=== PATIENT | male | born 1975 | race African-American/Black ===

== ENCOUNTER 2019-10-21 23:54 | Inpatient (IN) | payer MEDICAID, OTHER ==
[~2019-10-21] VITALS: Ht 175.3 cm; Wt 65.8 kg
[2019-10-22] MEDS ORDERED: SODIUM CHLORIDE 0.9% 1,000 ML IV ONE ×3 (00:20→12:00)
[2019-10-22] MEDS ORDERED: OLANZAPINE 10 MG/VIAL IM ONE (00:30)
[2019-10-22] MEDS ORDERED: LORAZEPAM 2MG/ML CPJ IM ONE (00:30)
[2019-10-22 01:23] LABS: BASOPHILS % 0.6 % (0.0-2.0); EOSINOPHILS % 2.2 % (0.0-5.0); HEMATOCRIT. 44.7 % (42.0-52.0); HEMOGLOBIN. 15.1 g/dL (14.0-18.0); LYMPHOCYTES % 29.1 % (20.0-50.0); MEAN CORPUSCULAR VOLUME 91.7 fL (80.0-94.0); MEAN PLATELET VOLUME 8.5 fl (7.4-10.4); MONOCYTES % 6.5 % (2.0-8.0); NEUTROPHILS % 61.6 % (40.0-76.0); PLATELET 200 x1000/uL (130-400); RED BLOOD CELL COUNT 4.88 mill/uL (4.7-6.1); RED CELL DISTRIBUTION WIDTH 14.2 % (11.6-14.6)
[2019-10-22 01:31] LABS: CHLORIDE 101 mEq/L (98-107)
[2019-10-22 01:36] LABS: ETHANOL BLOOD 104 mg/dL
[2019-10-22 01:51] LABS: CREATINE KINASE 976 IU/L (39-308)
[2019-10-22 09:43] LABS: CREATINE KINASE MB FRACTION 14.6 ng/mL (0.5-3.6)
[2019-10-22 09:55] LABS: CREATINE KINASE 1552 IU/L (39-308)
[2019-10-22 10:06] LABS: *AMPHETAMINES SCREEN URINE NEGATIVE (NEGATIVE); *BARBITURATES SCREEN URINE NEGATIVE (NEGATIVE); *BENZODIAZEPINES SCREEN URINE NEGATIVE (NEGATIVE); *COCAINE SCREEN URINE PRESUMTIVE POSITIVE (NEGATIVE); METHADONE URINE SCREEN NEGATIVE (NEGATIVE)
[2019-10-22 10:07] LABS: CANNABINOID URINE SCREEN PRESUMTIVE POSITIVE (NEGATIVE); OPIATES URINE SCREEN NEGATIVE (NEGATIVE); PHENCYCLIDINE URINE SCREEN PRESUMTIVE POSITIVE (NEGATIVE)
[2019-10-22 14:46] LABS: CREATINE KINASE 1667 IU/L (39-308)
[2019-10-22] MEDS ORDERED: POTASSIUM CHLORIDE 20MEQ TABLET SR PO NR (17:45)
[2019-10-22] MEDS ORDERED: CLONIDINE 0.1MG TABLET PO PRN (17:45)
[2019-10-22] MEDS ORDERED: ONDANSETRON HCL 4MG/2ML INJ IV PRN (17:45)
[2019-10-22] MEDS ORDERED: ACETAMINOPHEN 325MG TABLET PO PRN (17:45)
[2019-10-22 21:00] VITALS: BP 144/86
[2019-10-22] MEDS ORDERED: MAGNESIUM 1 G PREMIX 100 ML IV NR (22:00)
[2019-10-22] MEDS: SODIUM CHLORIDE 0.9% 1,000 ML IV SCH (22:27)
[2019-10-23] VITALS: BP 136/82
[2019-10-23 04:00] VITALS: BP 138/83
[2019-10-23 06:58] LABS: BASOPHILS % 0.5 % (0.0-2.0); EOSINOPHILS % 7.2 % (0.0-5.0); HEMOGLOBIN. 14.1 g/dL (14.0-18.0); LYMPHOCYTES % 42.9 % (20.0-50.0); MEAN CORPUSCULAR HEMOGLOBIN 30.9 pg (28.0-32.0); MEAN CORPUSCULAR VOLUME 91.9 fL (80.0-94.0); MEAN PLATELET VOLUME 8.6 fl (7.4-10.4); MONOCYTES % 7.4 % (2.0-8.0); PLATELET 189 x1000/uL (130-400); RED BLOOD CELL COUNT 4.57 mill/uL (4.7-6.1); RED CELL DISTRIBUTION WIDTH 14.1 % (11.6-14.6)
[2019-10-23 07:08] LABS: CHLORIDE 111 mEq/L (98-107)
[2019-10-23] MEDS: SODIUM CHLORIDE 0.9% 1,000 ML IV SCH (07:20)
[2019-10-23 07:27] LABS: CREATINE KINASE 984 IU/L (39-308); PHOSPHORUS 2.8 mg/dL (2.5-4.9)
[2019-10-23 08:00] VITALS: BP 139/91
[2019-10-23 12:00] VITALS: BP 140/67
[2019-10-23 15:55] VITALS: BP 140/67
== END 2019-10-23 16:31 | disposition home or self-care (01) | DRG 816 ==
LOC: ER 23:54 → ENRESERV 10-22 19:09 → 7WST 10-22 20:25
PROVIDERS: ADMIT Internal Medicine; ATTEND Internal Medicine
DX: T40.5X1A Poisoning by cocaine, accidental (unintentional), initial encounter (principal); G92 Toxic encephalopathy; F32.9 Major depressive disorder, single episode, unspecified; I10 Essential (primary) hypertension; E87.6 Hypokalemia; F12.10 Cannabis abuse, uncomplicated; F14.10 Cocaine abuse, uncomplicated; T40.901A Poisoning by unspecified psychodysleptics [hallucinogens], accidental (unintentional), initial encounter; F16.10 Hallucinogen abuse, uncomplicated; T51.91XA Toxic effect of unspecified alcohol, accidental (unintentional), initial encounter; M62.82 Rhabdomyolysis; Z59.0 Homelessness; Y92.89 Other specified places as the place of occurrence of the external cause
CPT/HCPCS: 36415; 80053; 80305; 80320; 82550; 82553; 83735; 84100; 84443; 84484; 85025; 93005; 96372; 99285; J2060; J3475; J3490; J7030; G0480